=== PATIENT | male | born 1960 | race Caucasian/White ===

== ENCOUNTER 2019-07-10 20:02 | Emergency (ER) | payer OTHER ==
[~2019-07-10] VITALS: Ht 182.9 cm; Wt 104.3 kg
--- NOTE | 2019-07-10 20:50 | Diagnostic Imaging Report ---
Exam: Left foot 2 views History: Pain Comparison: None. Findings: Transverse fracture of the proximal phalanx third toe. Joint spaces preserved. No abnormal soft tissue calcification or soft tissue defect. Impression: Transverse fracture of the proximal phalanx third toe Signed by: Dr. Hitesh Felder M.D. on 07/10/2019 8:46 PM
== END 2019-07-10 21:03 | disposition home or self-care (01) ==
LOC: ER 20:02
DX: S92.512A Displaced fracture of proximal phalanx of left lesser toe(s), initial encounter for closed fracture (principal); W22.03XA Walked into furniture, initial encounter; Y93.01 Activity, walking, marching and hiking; Y92.008 Other place in unspecified non-institutional (private) residence as the place of occurrence of the external cause; I10 Essential (primary) hypertension; I25.2 Old myocardial infarction
CPT/HCPCS: 99283